=== PATIENT | male | born 1985 | race Caucasian/White ===

== ENCOUNTER 2020-11-22 21:37 | Emergency (ER) | payer MEDICAID ==
[2020-11-22] MEDS ORDERED: Acetaminophen/HYDROcodone 325-5 MG Tab PO ONE (21:38)
[2020-11-22] MEDS ORDERED: HYDROmorphone 2 MG/ML SDV IM ONE (21:55)
--- NOTE | 2020-11-22 21:59 | EDM.PDOC ---
ED HPI GENERAL MEDICAL PROBLEM - General Chief Complaint: Upper Extremity Injury/Pain Stated Complaint: VERY BAD PAIN IN ARM Time Seen by Provider: 11/22/20 21:56 Source of Information: Reports: Patient History Limitations: Reports: No Limitations - History of Present Illness INITIAL COMMENTS - FREE TEXT/NARRATIVE: Olivier complains of severe pain on the left arm,with "Filipe horse". It cramped up with a flexed wrist and he is unable to straighten it. He has a h/o pain on that arm,and ulnar neuropathy with past surgery. Right Arm Pain Score (Numeric/FACES): 10 - Related Data Allergies Allergy/AdvReac Type Severity Reaction Status Date / Time latex Allergy Rash Verified 11/22/20 21:47 Past Medical History Cardiovascular History: Reports: Hypertension Psychiatric History: Reports: Depression - Past Surgical History GI Surgical History: Reports: Cholecystectomy Musculoskeletal Surgical History: Reports: Nerve Relocation, Other (See Below) Other Musculoskeletal Surgeries/Procedures:: numerous surgeries on his left arm due to a fracture when he was little, recently had a ulnar/radius nerve surgery. 2020 Social & Family History - Tobacco Use Tobacco Use Status *Q: Never Tobacco User - Caffeine Use Caffeine Use: Reports: Coffee - Recreational Drug Use Recreational Drug Use: No Review of Systems - Review of Systems Review Of Systems: Comprehensive ROS is negative, except as noted in HPI. ED EXAM, GENERAL - Physical Exam Exam: See Below Exam Limited By: No Limitations General Appearance: Alert Extremities: Other (Flexd wrist,with severe tighening of the muscles of the forrearm.) Neurological: Alert, Oriented, CN II-XII Intact, Normal Cognition Psychiatric: Normal Affect Course - Vital Signs Last Recorded V/S: Last Vital Signs Temp 97.7 F 11/22/20 21:47 Pulse 95 11/22/20 22:24 Resp 18 11/22/20 21:47 BP 137/81 11/22/20 22:24 Pulse Ox 96 11/22/20 22:24 - Orders/Labs/Meds Labs: Laboratory Tests 11/22/20 11/22/20 Range/Units 22:03 22:03 WBC 13.8 H (3.2-10.1) x10-3/uL RBC 5.10 (3.90-5.90) x10(6)uL Hgb 16.7 (12.9-17.7) g/dL Hct 48.4 (38.3-50.1) % MCV 94.9 (80.8-98.7) fL MCH 32.8 (27.0-33.3) pg MCHC 34.6 (28.7-35.3) g/dL RDW 12.9 (12.4-15.0) % Plt Count 251 (117-477) x10(3)uL MPV 8.3 (6.7-11.0) fL Neut % (Auto) 55.8 (40.3-71.8) % Lymph % (Auto) 33.2 (15.8-45.3) % [place] % (Auto) 7.5 (5.5-15.2) % Eos % (Auto) 2.6 (0.1-6.8) % Baso % (Auto) 0.9 (0.3-3.8) % Neut # (Auto) 7.7 H (1.7-6.9) x10-3/uL Lymph # (Auto) 4.6 H (0.5-4.5) x10-3/uL [place] # (Auto) 1.0 (0.0-1.2) x10-3/uL Eos # (Auto) 0.4 (0.0-0.6) x10-3/uL Baso # (Auto) 0.1 (0.0-0.3) x10-3/uL Sodium 142 (135-145) mmol/L Potassium 3.3 L (3.5-5.3) mmol/L Chloride 100 (100-110) mmol/L Carbon Dioxide 30 (21-32) mmol/L BUN 22 H (7-18) mg/dL Creatinine 1.3 (0.70-1.30) mg/dL Est Cr Clr Drug Dosing TNP Estimated GFR (MDRD) > 60 (>60) BUN/Creatinine Ratio 16.9 (9-20) Glucose 136 H (80-116) mg/dL Calcium 8.9 (8.6-10.2) mg/dL Total Bilirubin 0.7 (0.1-1.3) mg/dL AST 15 (5-25) IU/L ALT 33 (12-36) U/L Alkaline Phosphatase 81 (56-112) IU/L Creatine Kinase 133 (60-160) IU/L Total Protein 7.4 (6.0-8.0) g/dL Albumin 3.9 (3.5-5.2) g/dL Globulin 3.5 g/dL Albumin/Globulin Ratio 1.1 Meds: Medications Discontinued Medications Generic Name Dose Route Start Last Admin Trade Name Peggy PRN Reason Stop Dose Admin Diazepam 10 mg 11/22/20 21:55 11/22/20 22:01 Diazepam 10 Mg/2 Ml Syringe IM 11/22/20 21:56 10 mg ONETIME ONE Administration Hydromorphone HCl 1 mg 11/22/20 21:55 11/22/20 22:01 Hydromorphone 2 Mg/Ml Sdv IM 11/22/20 21:56 1 mg ONETIME ONE Administration Departure - Departure Time of Disposition: 22:25 Disposition: Home, Self-Care 01 Condition: Good Clinical Impression: Upper extremity myoclonus - Discharge Information Forms: ED Department Discharge Sepsis Event Note (ED) - Evaluation Sepsis Screening Result: No Definite Risk - Focused Exam Vital Signs: Vital Signs Temp Pulse Resp BP Pulse Ox 11/22/20 22:24 95 137/81 96 11/22/20 21:47 97.7 F 133 H 18 156/102 H 98 - Problem List & Annotations (1) Upper extremity myoclonus SNOMED Code(s): 63282281, 067227207 Code(s): G25.3 - MYOCLONUS Status: Acute Current Visit: No (2) Upper extremity neuropathy SNOMED Code(s): 224632526 Code(s): G56.90 - UNSPECIFIED MONONEUROPATHY OF UNSPECIFIED UPPER LIMB Status: Acute Current Visit: Yes Qualifiers: Laterality: left Qualified Code(s): G56.92 - Unspecified mononeuropathy of left upper limb - Problem List Review Problem List Initiated/Reviewed/Updated: Yes - Assessment/Plan Plan: I gave him Valium and Dilaudid. Helped,muscle released, Mild hypokalemia. Brace the left arm ext and has MRI on Tuesday
== END 2020-11-22 22:42 | disposition home or self-care (01) ==
LOC: FB.ED 21:37
DX: G25.3 Myoclonus (principal); I10 Essential (primary) hypertension; Z91.040 Latex allergy status
CPT/HCPCS: 36415; 80053; 82550; 85025; 96372; 99283; A9270; J1170; J3360